=== PATIENT | male | born 1975 | race Hispanic/Latino ===

== ENCOUNTER → 2017-04-20 | Outpatient (CLI) | payer OTHER ==
--- NOTE | 2017-04-23 09:28 | MRI ---
EXAM DESCRIPTION: MRI left shoulder CLINICAL HISTORY: Left shoulder pain COMPARISON: None. TECHNIQUE: Multiplanar, multisequence MR images of the left shoulder FINDINGS: Supraspinatus tendinosis. Bursal surface fraying. No high-grade partial tear or full-thickness tear. Normal muscle volume and signal, grade 0 Infraspinatus tendinosis. Low-grade interstitial fissuring and minimal bursal surface fraying. No high-grade partial or full-thickness tear. Normal muscle volume and signal, grade 0 Teres minor and subscapularis tendons and muscles are normal Long head biceps tendon is normal in the bicipital groove and intra-articular. Abnormal signal along the base of the superior labrum to posterior superior labrum with lateral extension into the substance of the labrum seen on proton density images. No fluid on T2-weighted images. No acute labral detachment elsewhere. No high-grade chondrosis or focal osteochondral lesion Acromioclavicular osteoarthritis. Osteophytes indent the supraspinatus. Marrow edema throughout the distal clavicle with capsular and pericapsular edema. Anterior lateral downsloping of the acromion. Prominent subacromial enthesophyte and inferior lateral spur IMPRESSION: Acromioclavicular osteoarthritis, subacromial enthesophyte and shape of the acromion narrow the subacromial space Supraspinatus and interspinous tendinosis with bursal surface fraying and edema Electronically signed by: Vik Dumont MD 04/23/2017 9:27 AM CDT
== END | disposition home or self-care (01) ==
LOC: MRI 08:47
PROVIDERS: ATTEND Family Medicine
DX: M75.22 Bicipital tendinitis, left shoulder (principal)